=== PATIENT | female | born 1990 | race Two or more races ===

== ENCOUNTER 2024-12-27 18:42 | Emergency (ER) | payer OTHER ==
[~2024-12-27] VITALS: Ht 162.6 cm; Wt 111.1 kg
[2024-12-27 19:15] VITALS: BP 150/82; O2SAT 100
[2024-12-27] MEDS ORDERED: METOPROLOL SUC100 MG PO (19:18)
[2024-12-27] MEDS ORDERED: NORFLEX100MG PO (20:00)
== END 2024-12-27 20:23 | disposition home or self-care (01) ==
LOC: ER 18:42
DX: M79.671 Pain in right foot (principal); W17.89XA Other fall from one level to another, initial encounter; Y93.89 Activity, other specified; Y92.89 Other specified places as the place of occurrence of the external cause; I49.8 Other specified cardiac arrhythmias